=== PATIENT | male | born 2000 | race Caucasian/White ===

== ENCOUNTER 2021-07-26 22:32 | Emergency (ER) | payer OTHER ==
[~2021-07-26] VITALS: Ht 182.9 cm; Wt 72.7 kg
[2021-07-26 23:53] VITALS: BP 123/73; PULSE 81; TEMP 98.6
== END 2021-07-26 23:53 | disposition home or self-care (01) ==
LOC: COL.ER 22:32
DX: S01.81XA Laceration without foreign body of other part of head, initial encounter (principal); F17.210 Nicotine dependence, cigarettes, uncomplicated; W22.8XXA Striking against or struck by other objects, initial encounter

== ENCOUNTER → 2021-08-01 | Outpatient (CLI) | payer OTHER ==
[2021-08-01 16:15] VITALS: BP 130/75; PULSE 84; TEMP 98.4
== END ==
LOC: COL.ER 16:01
DX: Z48.02 Encounter for removal of sutures (principal)